=== PATIENT | female | born 1970 | race Caucasian/White ===

== ENCOUNTER → 2017-09-08 15:58 | Outpatient (REF) | payer MEDICARE, MEDICAID, SELFPAY | LOC: LAB 15:58 | PROVIDERS: Family Provider Family Medicine; PCP Family Medicine; Visit Provider Internal Medicine | DX: L08.9 Local infection of the skin and subcutaneous tissue, unspecified (principal) | CPT/HCPCS: 87070; 87075; 87077; 87186; 87205 ==

== ENCOUNTER 2019-11-04 17:10 | Emergency (ER) | payer MEDICARE, MEDICAID, SELFPAY ==
[2019-11-04] VITALS (8 sets, daily range): BP systolic 139–194; BP diastolic 71–94; PULSE 79–112; RESP 14–22; TEMP 37.1; O2SAT 97–99
--- NOTE | 2019-11-04 17:19 | DI.RAD.S_ITS ---
PROCEDURE: XR CHEST 1V INDICATIONS: chest pain TECHNIQUE: One view of the chest was acquired. COMPARISON: None. FINDINGS: Surgical changes and devices: None. Lungs and pleura: Lungs are clear. No pleural effusions or pneumothorax. Mediastinum: Mediastinal contours appear normal. Heart size is normal. Bones and chest wall: No suspicious bony lesions. Overlying soft tissues appear unremarkable. IMPRESSION: No acute cardiopulmonary abnormalities. Dictated by: Howard Tripp M.D. on 11/04/2019 at 18:16 Approved by: Howard Tripp M.D. on 11/04/2019 at 18:16
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
[2019-11-04 17:38] LABS: Add Manual Diff / Slide Review NO; Basophils Absolute Auto 100 /uL (0-100); Basophils Percent Auto 1.2 % (0-2); Eosinophils Absolute Auto 200 /uL (0-450); Eosinophils Percent Auto 1.8 % (2-4); Hematocrit 42.9 % (36-46); Hemoglobin 14.9 g/dL (12.0-16.0); Lymphocytes Absolute Auto 2600 /uL (1100-4500); Lymphocytes Percent Auto 28.6 % (25-40); Mean Corpuscular HGB Conc 34.6 % (30-36); Mean Corpuscular Hemoglobin 31.8 PG (26-34); Mean Corpuscular Volume 91.9 fL (80-100); Monocytes Absolute Auto 500 /uL (0-900); Neutrophils Absolute Auto 5700 /uL (1500-7000); Neutrophils Percent Auto 63.4 % (50-75); Platelet Count 237 X10^3/uL (150-400); Red Blood Cell Count 4.67 X10^6/uL (4.0-5.2); Red Cell Distribution Width 13.1 % (11.6-14.8)
[2019-11-04 17:40] LABS: Prothrombin Time 11.2 SECONDS (10.1-12.7)
[2019-11-04 17:43] LABS: PTT Partial Thromboplastin Tim 34 SECONDS (26.4-36.2)
[2019-11-04 17:50] LABS: Alanine Aminotransferase 22 IU/L (<35); Albumin 4.2 g/dL (3.5-5.0); Albumin Globulin Ratio 1.4 (1.0-2.8); Alkaline Phosphatase 95 U/L (38-126); Aspartate Aminotransferase 44 IU/L (14-36); BUN Creatinine Ratio 32.6 (6-22); Bilirubin Total 0.4 mg/dL (0.2-1.3); Blood Urea Nitrogen 14 mg/dL (7-17); Calcium 9.6 mg/dL (8.4-10.2); Carbon Dioxide 22 mmol/L (22-32); Chloride 104 mmol/L (98-107); Creatine Kinase 106 U/L (30-135); Estimated Glomerular Filt Rate > 60.0 mL/min (>60); Globulin 3.1 g/dL (1.7-4.1); Glucose 193 mg/dL (70-100); HEMOLYSIS 27 (0-50); Lipase 37 U/L (23-300); Potassium 4.1 mmol/L (3.4-5.1); Sodium 138 mmol/L (137-145); Total Protein 7.3 g/dL (6.3-8.2)
[2019-11-04 18:06] LABS: CKMB % Relative Index 5.7 % (1.5-5.0); Creatine Kinase MB 6.05 ng/mL (<2.37)
[2019-11-04] MEDS: HEPARIN 5,000 UNIT/ML VIAL 5000 UNIT IV (18:37)
[2019-11-04] MEDS: ASPIRIN 81 MG CHEW TAB 324 MG PO (18:37)
[2019-11-04] MEDS: HEPARIN DRIP 25,000 UNIT/500 ML IV.SOLN 28.848 UNIT IV (18:39)
[2019-11-04] MEDS: NITROGLYCERIN 0.4 MG SL TAB SL ×3 (18:47→20:59)
[2019-11-04] MEDS: SODIUM CHLORIDE 0.9% 1,000 ML 150 ML IV (18:49)
[2019-11-04 18:50] LABS: NT-proBNP (BNP-Adult 18+) 98 pg/mL (<125)
--- NOTE | 2019-11-04 18:58 | PC.NURSE ---
Larisa AWAN witnessed heparin drip and heparin bolus
[2019-11-04] MEDS: ATORVASTATIN 20 MG TABLET 80 MG PO (19:20)
[2019-11-04] MEDS: METOPROLOL IR 50 MG TABLET PO (19:20)
--- NOTE | 2019-11-04 19:33 | PC.NURSE ---
Assumed care of pt. report received from LV Pavon. Pt resting in bed. Heparin gtt infusing at 12units/kg/hr, NS @ 150ml/hr. Pt denies pain at this time states No pain im just tired and i have a headache. Metoprolol and Lipitor given as ordered. repeat EKG obtained. 2nd trop drawn and sent. NAD. remains on cardiac monitoring. awaiting transport to OSH.
--- NOTE | 2019-11-04 21:30 | PC.NURSE ---
attempted report to [facility] at this time. RN unavailable.
[2019-11-04 21:44] LABS: COVID19 -Nasal RAPID Negative (Negative)
== END 2019-11-04 21:30 | disposition short-term general hospital (02) ==
PROVIDERS: Emergency Medicine; Emergency Provider Student in an Organized Health Care Education/Training Program; Family Provider Family Medicine; PCP Family Medicine
DX: I21.4 Non-ST elevation (NSTEMI) myocardial infarction (principal); E66.01 Morbid (severe) obesity due to excess calories; E11.9 Type 2 diabetes mellitus without complications; R00.0 Tachycardia, unspecified; F41.9 Anxiety disorder, unspecified; E34.0 Carcinoid syndrome
CPT/HCPCS: 36415; 71045; 80053; 82550; 82553; 83690; 83880; 84484; 85025; 85610; 85730; 87635; 93005; 96365; 96366; 96375; 99285; J1644

== ENCOUNTER → 2020-03-07 16:54 | Outpatient (CLI) | payer MEDICARE, MEDICAID, SELFPAY ==
--- NOTE | 2020-03-07 16:58 | DI.MRI.S_ITS ---
PROCEDURE: MR KNEE LT WO CON INDICATIONS: PAIN IN LEFT KNEE TECHNIQUE: Noncontrast sagittal PD fast spin echo and T2 fast spin echo with fat saturation, sagittal 3-D FLASH with fat saturation; coronal T1 spin echo and PD fast spin echo with fat saturation, and axial PD fast spin echo with fat saturation through the knee. COMPARISON: None. FINDINGS: Image quality: Excellent. Menisci: Medial meniscus intact. Lateral meniscus intact. There is prominent adjacent fluid seen within the meniscosynovial recess Cruciate ligaments: Anterior cruciate ligament appears intact. Posterior cruciate ligament appears intact. Medial structures: The medial collateral ligament appears intact. Semimembranosus tendon appears intact. Visualized portions of the pes anserinus tendons appear normal. No abnormal bursal fluid. Lateral structures: The lateral collateral ligament intact. Biceps femoris tendon appears intact. Popliteus tendon grossly unremarkable. Iliotibial band appears intact. Anterior structures: Quadriceps tendon intact. Medial and lateral patellofemoral ligaments intact. There is mild patellar tendinopathy. Prepatellar and superficial infrapatellar subcutaneous edema/fluid. There is minimal deep infrapatellar fluid Bones and cartilage: No focal marrow contusion or discrete low signal fracture line. Within the medial compartment, mild diffuse surface fraying of the femoral and tibial patellar cartilage. Within the lateral compartment, no focal cartilage defect Within the patellofemoral compartment, partial-thickness loss and surface fraying of the cartilage overlying the lateral patellar facet. Joint space: Trace joint effusion No definite formed Hansen's cyst although there is trace fluid between the semimembranosus and medial gastrocnemius tendons. No specific evidence of intra-articular loose body. IMPRESSION: Mild patellar tendinopathy. Mild degenerative joint disease, in particular involving the patellofemoral compartment. Elsewhere, no internal derangement Trace joint effusion. Dictated by: Yasmani Ruby M.D. on 03/10/2020 at 8:29 Approved by: Yasmani Ruby M.D. on 03/10/2020 at 8:35
--- NOTE | 2020-03-07 16:59 | DI.RAD.S_ITS ---
PROCEDURE: XR SACRUM COCCYX MIN 2V INDICATIONS: PAIN IN COCCYX TECHNIQUE: 3 views of the sacrum and coccyx acquired. COMPARISON: Outside Facility, , CT ABDOMEN/PELVIS WITHOUT CONTRAST, 10/15/2015, 13:19. Located Within [facility], CT, ABDOMEN/PELVIS WITH CONTRAST, 12/21/2014, 20:11. FINDINGS: This study is limited by body habitus. Bones: No fractures or dislocations. No suspicious bony lesions. Soft tissues: Visualized bowel gas pattern is normal. No suspicious soft tissue densities. Pelvic phleboliths are incidentally noted. IMPRESSION: No significant plain film abnormality of the sacrum or coccyx can be seen. Dictated by: Lee Lerma M.D. on 03/08/2020 at 9:29 Approved by: Lee Lerma M.D. on 03/08/2020 at 9:31
== END ==
PROVIDERS: Family Provider Family Medicine; PCP Family Medicine; Referring Provider Family Medicine; Visit Provider Family Medicine
DX: M25.562 Pain in left knee (principal); M17.12 Unilateral primary osteoarthritis, left knee; M53.3 Sacrococcygeal disorders, not elsewhere classified
CPT/HCPCS: 72220; 73721

== ENCOUNTER → 2020-10-10 12:39 | Outpatient (CLI) | payer MEDICARE, MEDICAID, SELFPAY ==
--- NOTE | 2020-10-10 | DI.CT.S_ITS ---
PROCEDURE: CT CHEST WO CON INDICATIONS: Other nonspecific abnormal finding of lung field TECHNIQUE: Noncontrast 5 mm thick sections acquired from the pulmonary apices to the posterior costophrenic angles. 1 mm lung window, 5 mm thick coronal and sagittal and 7 mm axial MIP reformats were then acquired. For radiation dose reduction, the following was used: automated exposure control, adjustment of mA and/or kV according to patient size. COMPARISON: [facility], CT, ABDOMEN/PELVIS WITH CONTRAST, 12/21/2014, 20:11. [facility], CR, XR CHEST 1 VIEW, 01/22/2020, 16:13. Outside Film, CT, CT ABDOMEN PELVIS WITH CONTRAST, 07/05/2020, 19:15. FINDINGS: Image quality: Excellent. Lungs and pleura: Ill-defined 3 mm pulmonary nodule, posterior segment right upper lobe, image 118/3. 5 mm pleural based pulmonary nodule, left lower lobe, image 200/3. This is not significantly changed from a prior CT abdomen and pelvis dated 12/21/2014 No acute air space opacities. No pleural effusions or pneumothorax. Central and peripheral airways are patent and normal in caliber. Mediastinum: Heart size is normal. No pericardial effusion. Coronary artery calcifications. Question LAD stent. No mediastinal adenopathy by size criteria. Thoracic aorta and central pulmonary arteries are normal in size. Esophagus is normal in caliber. No hiatal hernia. Bones and chest wall: No suspicious bony lesions. No vertebral body compression fractures. No axillary or supraclavicular adenopathy by size criteria. Thyroid gland is unremarkable . Abdomen: Diffuse hepatic steatosis. Visualized upper abdominal solid organs and bowel loops otherwise appear normal in the absence of contrast. IMPRESSION: 1. There is an ill-defined 3 mm pulmonary nodule in the right upper lobe, not previously imaged. There is a 5 mm pleural based pulmonary nodule in the left lower lobe, unchanged appear to 2015, a benign pulmonary nodule. 2. Diffuse hepatic steatosis. 3. Coronary artery disease. Dictated by: Horace Villareal M.D. on 10/10/2020 at 13:08 Approved by: Horace Villareal M.D. on 10/10/2020 at 13:29
== END ==
PROVIDERS: Family Provider Family Medicine; PCP Family Medicine; Referring Provider Family Medicine; Visit Provider Family Medicine
DX: R91.8 Other nonspecific abnormal finding of lung field (principal); K76.0 Fatty (change of) liver, not elsewhere classified; I25.10 Atherosclerotic heart disease of native coronary artery without angina pectoris
CPT/HCPCS: 71250

== ENCOUNTER 2021-11-02 13:42 | Emergency (ER) | payer MEDICARE, MEDICAID, SELFPAY ==
[2021-11-02 13:49] VITALS: BP 181/89; PULSE 97; RESP 16; TEMP 36.6; O2SAT 94; BMI 41.5
--- NOTE | 2021-11-02 13:56 | DI.RAD.S_ITS ---
PROCEDURE: XR KNEE RT 3V INDICATIONS: fall, pain/swelling TECHNIQUE: 3 views of the knee were acquired. COMPARISON: None. FINDINGS: Bones: No fractures or dislocations. No suspicious bony lesions. Soft tissues: Minimal joint effusion. No suspicious soft tissue calcifications. IMPRESSION: Minimal effusion. No visualized acute fracture or dislocation. However, if clinical concern and/or pain persist, short interval imaging followup in 7-10 days is recommended, as occult injury cannot be definitively excluded. Dictated by: Ban Puckett M.D. on 11/02/2021 at 14:43 Approved by: Ban Puckett M.D. on 11/02/2021 at 14:54
--- NOTE | 2021-11-02 13:56 | DI.RAD.S_ITS ---
PROCEDURE: XR WRIST LT MIN 3V INDICATIONS: fall, pain/swelling TECHNIQUE: 4 views of the wrist were acquired. COMPARISON: None. FINDINGS: Bones: No fractures or dislocations. No suspicious bony lesions. Scaphoid view: No visualized fracture. Soft tissues: No suspicious soft tissue calcifications. IMPRESSION: No visualized acute fracture or dislocation. However, if clinical concern and/or pain persist, short interval imaging followup in 7-10 days is recommended, as occult injury cannot be definitively excluded. Dictated by: Ban Puckett M.D. on 11/02/2021 at 14:54 Approved by: Ban Puckett M.D. on 11/02/2021 at 14:55
[2021-11-02 14:36] VITALS: PULSE 92; O2SAT 98
--- NOTE | 2021-11-02 14:40 | ED_ITS ---
HPI - Extremity Problem <Juju Ludwin Davis, [facility] - Last Filed: 11/02/21 15:27> General Chief complaint: Syncope Stated complaint: Blacked out and fell on Sat- left side body pain Time Seen by Provider: 11/02/21 14:24 Mode of arrival: Wheelchair History of Present Illness HPI Narrative: This is a 51-year-old female with history of diabetes-insulin dependent, reports history of colon cancer and states she gets octreotide injections and endorses blood in stool at baseline, patient endorses having history of [place] two years ago, has been on metoprolol since and states that she has lightheadedness and dizziness when she stands up on this medication ever since she started it. She states that three days ago she stood up abruptly and felt dizzy, fell down injuring her left knee and her left forearm. States she has been taking Tylenol and ibuprofen for this, endorses blood in her stool but not much, endorses seeing a new oncologist tomorrow for her reported colon cancer. She denies any radiation, chemotherapy, during surgery to her abdomen, or any medications other than octreotide, and her diabetes medications. Patient denies any new dizziness, lightheadedness, head injury, vision changes, states that her blood sugars have been up and down but she denies any recent fever, illness, sore throat, cough, shortness of breath, or changes to her health. Patient states that she took three Tylenol prior to her arrival today, states that she takes ibuprofen when she has pain, when questioned about this and her GI bleeding, patient states that she has never been told to not take it. She is not on a PPI. Related Data Home Medications Medication Instructions Recorded Confirmed gabapentin 600 mg tablet 900 mg PO TID 11/28/17 11/28/17 humalog u 200 IM .before meals 11/28/17 11/28/17 hydrocodone 5 mg-acetaminophen 325 1 tab PO Q6H PRN 11/28/17 11/28/17 mg tablet loperamide 2 mg capsule 2 mg PO .prn 11/28/17 11/28/17 ondansetron HCl 4 mg tablet 4 mg PO DAILY PRN 11/28/17 11/28/17 (Zofran) sertraline 100 mg tablet (Zoloft) 350 mg PO DAILY 11/28/17 11/28/17 zolpidem 10 mg tablet (Ambien) 10 mg PO BEDTIME PRN 11/28/17 11/28/17 Previous Rx's Medication Instructions Recorded diclofenac sodium 1 % topical gel 2 g topical QID PRN pain #100 grams 11/02/21 omeprazole 20 mg tablet,delayed 20 mg PO DAILY PRN GI bleeding 11/02/21 release prophylaxis #20 tabs Allergies Allergy/AdvReac Type Severity Reaction Status Date / Time Sulfa (Sulfonamide Allergy Severe RASH, Unverified 11/02/21 13:55 Antibiotics) FEELS LIKE MY THROAT IS CLOSING UP exenatide Allergy Intermediate SYCOPE, Unverified 11/02/21 13:55 EMESIS hydromorphone Allergy Intermediate FEELING OF Unverified 11/02/21 13:55 IMPENDING DOOM latex Allergy Intermediate RASH, Unverified 11/02/21 13:55 YEAST INFECTIONS levofloxacin Allergy Intermediate RASH Unverified 11/02/21 13:55 metformin Allergy Intermediate VOMITING Unverified 11/02/21 13:55 DIARRHEA morphine Allergy Verified 11/02/21 13:55 Penicillins Allergy Verified 11/02/21 13:55 TAPE PAPER TAPE OK Allergy Unknown Uncoded 11/02/21 13:55 Review of Systems <BRAULIO Sethi - Last Filed: 11/02/21 15:27> Review of Systems Narrative: General: denies fever, chills, malaise, sweats, fatigue Head/Neck: denies headache, neck pain, dizziness Eyes: denies visual changes, eye pain Cardio: denies chest pain, palpitations, edema Respiratory: denies dyspnea, cough, orthopnea GI: denies abdominal pain, nausea, vomiting, or diarrhea : denies dysuria, hematuria, urinary retention, frequency or incontinence MSK: endorses left knee pain, with an abrasion and a bruise, denies any muscle weakness or sensation changes, endorses left forearm pain Skin: denies rash, itching, has an abrasion to her left knee and is scabbed over Neuro: denies numbness, tingling Patient History <BRAULIO Sethi - Last Filed: 11/02/21 15:27> Medical History (Updated 11/02/21 @ 15:21 by BRAULIO Sethi) Anxiety Carcinoid syndrome Diabetes Migraines Sleep apnea Surgical History H/O bladder repair surgery H/O hernia repair H/O: hysterectomy History of tonsillectomy Family History Mother Hypertension Diabetes mellitus Stroke Father Hypertension Diabetes mellitus Grandmother Hypertension Heart disease Gallstones Diabetes mellitus Grandfather Hypertension Heart disease Diabetes mellitus Family/Other Heart disease Social History marital status: unmarried,living together household members: significant other occupational status: unemployed Smoking Status: Never smoker alcohol intake: never substance use type: does not use Smoking Status: Never smoker alcohol intake frequency: holidays/special occasions only Substance Use Type: does not use Exam <BRAULIO Sethi - Last Filed: 11/02/21 15:27> Narrative Exam Narrative: Independently reviewed vitals signs and nursing notes. General: Awake, alert, nontoxic, no cardiorespiratory distress Head/Neck: Atraumatic, neck supple Eyes: EOMI, conjunctiva normal Nose: nares patent, no rhinorrhea Mouth/Throat: moist mucus membranes Cardio: Regular rate and rhythm, no peripheral/dependant edema, warm extremities Respiratory: respirations unlabored without wheezing, stridor, or rales. No re tractions, hypoxia or tachypnea GI: Abdomen soft, obese, nontender, no guarding or rebound tenderness MSK: Moves all extremities, neurovascularly intact, range of motion without deficit Skin: Normal capillary refill, no rash, abrasion on left knee which is scabbed over, mild ecchymosis without suprapatellar edema, no range of motion deficit, tenderness over LCL, no tenderness over MCL, range of motion is intact without deficit, bearing weight is painful for patient, ambulate steadily with a walker without deficit Neuro: Normal speech and cognition, normal gait Initial Vital Signs Initial Vital Signs: Vital Signs Temperature 97.8 F 11/02/21 13:49 Pulse Rate 97 H 11/02/21 13:49 Respiratory Rate 16 11/02/21 13:49 Blood Pressure 181/89 H 11/02/21 13:49 Pulse Oximetry 94 11/02/21 13:49 Oxygen Delivery Method 11/02/21 13:49 <Melany Mcnulty DO - Last Filed: 11/03/21 07:28> Initial Vital Signs Initial Vital Signs: Vital Signs Temperature 97.8 F 11/02/21 13:49 Pulse Rate 97 H 11/02/21 13:49 Respiratory Rate 16 11/02/21 13:49 Blood Pressure 181/89 H 11/02/21 13:49 Pulse Oximetry 94 11/02/21 13:49 Oxygen Delivery Method 11/02/21 13:49 Course <BRAULIO Sethi - Last Filed: 11/02/21 15:27> Orders Ordered: Discontinued Medications Hydrocodone Bitart/Acetaminophen (Hydrocodone/Acet 5/325 Tablet) 1 tab PO NOW ONE Stop: 11/02/21 14:38 Last Admin: 11/02/21 14:59 Dose: 1 tab Documented By: BRANDON Mcitracin (Bacitracin Oint 0.9 Gm Pckt) 1 applic TOP NOW ONE Stop: 11/02/21 15:12 Last Admin: 11/02/21 15:54 Dose: 1 applic Documented By: BRANDON Pantoprazole Sodium (Pantoprazole Dr 20 Mg Tablet) 20 mg PO NOW ONE Stop: 11/02/21 14:38 Last Admin: 11/02/21 15:01 Dose: Not Given Documented By: BRANDON Vital Signs Vital signs: Vital Signs - 8 hr 11/02/21 13:49 Temperature 97.8 F Pulse Rate 97 H Respiratory Rate 16 Blood Pressure 181/89 H Pulse Oximetry 94 Oxygen Delivery Method Room Air <Melany Mcnulty DO - Last Filed: 11/03/21 07:28> Orders Ordered: Discontinued Medications Hydrocodone Bitart/Acetaminophen (Hydrocodone/Acet 5/325 Tablet) 1 tab PO NOW ONE Stop: 11/02/21 14:38 Last Admin: 11/02/21 14:59 Dose: 1 tab Documented By: BRANDON Bacitracin (Bacitracin Oint 0.9 Gm Pckt) 1 applic TOP NOW ONE Stop: 11/02/21 15:12 Last Admin: 11/02/21 15:54 Dose: 1 applic Documented By: BRANDON Pantoprazole Sodium (Pantoprazole Dr 20 Mg Tablet) 20 mg PO NOW ONE Stop: 11/02/21 14:38 Last Admin: 11/02/21 15:01 Dose: Not Given Documented By: BRANDON Vital Signs Vital signs: Vital Signs - 8 hr 11/02/21 13:49 Temperature 97.8 F Pulse Rate 97 H Respiratory Rate 16 Blood Pressure 181/89 H Pulse Oximetry 94 Oxygen Delivery Method Room Air MDM - Extremity (Nontraumatic) <Juju Mascorro Ayanjossie, [facility] - Last Filed: 11/02/21 15:27> Imaging Data Extremity x-ray #1: Radiologist's Impression: PROCEDURE:? XR KNEE RT 3V ? INDICATIONS:? fall, pain/swelling ? TECHNIQUE:? 3 views of the knee were acquired.? ? COMPARISON:? None. ? FINDINGS:? ? Bones:? No fractures or dislocations.? No suspicious bony lesions.? ? Soft tissues:? Minimal joint effusion.? No suspicious soft tissue calcifications.? ? ? IMPRESSION:? Minimal effusion.? No visualized acute fracture or dislocation. However, if clinical concern and/or pain persist, short interval imaging followup in 7-10 days is recommended, as occult injury cannot be definitively excluded. ? ? Dictated by: Ban Puckett M.D. on 11/02/2021 at 14:43 ? ? Approved by: Ban Puckett M.D. on 11/02/2021 at 14:54 ? Extremity x-ray #2: Radiologist's Impression: PROCEDURE:? XR WRIST LT MIN 3V ? INDICATIONS: fall, pain/swelling ? TECHNIQUE:? 4 views of the wrist were acquired.? ? COMPARISON:? None. ? FINDINGS:? ? Bones:? No fractures or dislocations.? No suspicious bony lesions.? ? Scaphoid view:? No visualized fracture. ? Soft tissues:? No suspicious soft tissue calcifications.? ? IMPRESSION:? No visualized acute fracture or dislocation. However, if clinical concern and/or pain persist, short interval imaging followup in 7-10 days is recommended, as occult injury cannot be definitively excluded. ? ? Dictated by: Ban Puckett M.D. on 11/02/2021 at 14:54 ? ? Approved by: Ban Puckett M.D. on 11/02/2021 at 14:55 ? MDM Narrative Medical decision making narrative: This is a 51-year-old female with history reported colon cancer with injections of octreotide as treatment, hypertension, [place] two years ago, diabetes type 2- insulin dependent, who presents to the emergency department after a reported postural dizziness fall three days ago complaining of left knee pain and left wrist pain. Patient states that she has been on metoprolol since or heart attack two years ago and it causes her dizziness when she stands up every time. Patient states that this happened again while she was outside three days ago she remembers being dizzy and then she remembers getting up off the ground. She had an LOC for less than 30 seconds, this was witnessed by her significant other. Patient states that this is not abnormal in this has happened in the past, denies any changes to her health recently, denies any dizziness or lightheadedness prior to this incident. She is not on any anticoagulants, denies any dysuria, urinary frequency, mental status changes, dizziness, high or low blood sugars, increased fatigue, nausea vomiting, endorses blood in stool but this is normal for her at baseline. States that she is seeing a new oncologist tomorrow, reports that she has a history of colon cancer but also tells me that she is taking ibuprofen for her pain. She told me that she still has blood in her stool and everybody knows about it and this is been fully worked up in her records are not here at this hospital. She denies any anemia, she denies any increased fatigue, denies any chest pain, shortness of breath, dizziness or other symptom at this time. Left knee x-ray does show a mild effusion without any acute fracture, dislocation, or other osseous abnormality, left wrist x-ray is negative for any acute fracture, dislocation or any other acute injury. Patient has a mild abrasion to her left knee over her patella, mild tenderness over LCL, ecchymosis present without erythema, rash, obvious suprapatellar joint effusion or other. She is ambulatory with a steady gait although she is in pain using a walker. She was given a walker today for ambul ating safety, discussed a knee immobilizer but patient states that that might be more unsafe as she has difficulty getting around without restrictions. She denies any new numbness or tingling to her extremities was provided a referral to [facility] for follow-up if she has ongoing symptoms. Her left knee was wrapped in a thick Juarez bandage by nursing, she states that this is supportive and was helpful for her to use to ambulate. Patient understands to follow-up with her specialist as scheduled and to return to the emergency department for any new or worsening symptoms, and to follow-up with orthopedics for any worsening of this. She is encouraged to rest, ice, elevate and use her medications as needed for her pain. She states that she has hydrocodone at home to use for this. Patient sees Dr. Perez for cardiology and wishes to follow- up with him regarding her metoprolol dosing as she states she would like to come off of this medicine. She was hypertensive in the emergency department today without any bradycardia, postural dizziness, or other symptoms. Patient is appropriate and amenable to discharge home. Vital signs are stable on repeat examination is unremarkable. Patient has been informed of results. Patient has been given strict return to ER precautions for any new or worsening symptoms. Patient understands to follow up closely with outpatient providers as instructed. Patient understands plan and agrees to discharge home. All questions and concerns answered at this time. Discharge Plan Departure Patient Disposition: Home Clinical Impression: Effusion of left knee Fall Qualifiers: Encounter type: initial encounter Qualified Code(s): W19.XXXA - Unspecified fall, initial encounter Injury of knee, left Qualifiers: Encounter type: initial encounter Qualified Code(s): S89.92XA - Unspecified injury of left lower leg, initial encounter Injury of wrist, left Qualifiers: Encounter type: initial encounter Qualified Code(s): S69.92XA - Unspecified injury of left wrist, hand and finger(s), initial encounter Instructions: DI for Knee Effusion, DI for Wrist Pain Activity Restrictions/Additional Instructions: *You have been diagnosed with left knee injury with swelling inside the joint, contusions, and a left wrist injury without any fracture or abnormalities on the x-ray. Your left knee x-ray does not show any fractures either but it does show some swelling within the joint which is common after a blunt injury like you had. Please continue to ice your injuries as long as it is helpful for the pain, rest, elevate things that are bruised and injured and continue to stay active with light walking with an Juarez wrap for support of your left knee and using the walker. Please follow-up with [facility] if your knee pain is ongoing or difficult to walk with beyond 1-2 weeks. Try not to overuse it but try not to stay in a still position all day, joints like movement so try to walk around frequently, stay hydrated, take pain medicine as needed, you may take hydrocodone in addition to your gabapentin at home. Please return to the emergency department if you have any new or worsening symptoms. Good luck with your oncology doctor tomorrow, please see your primary care provider for referral to physical therapy if you are still feeling stiff and sore after 1-2 weeks. I wish you the best, please avoid ibuprofen and other NSAIDs if your have any blood in your stool. I have prescribed for you omeprazole which will hopefully prevent bleeding from your stomach or duodenum from any GI ulcer. *What to do: *Please continue to take your regular medications as directed. [x ] New medication prescriptions sent to your pharmacy: [ [facility]] [ ] New medication written as a paper prescription [ ] No new medications given *Please follow up with your primary care provider in 2-3 days, call for an appointment. Let them know you were seen in the Emergency Department and that we asked that you be seen for follow-up. We will electronically transmit a record of today's note if your PCP is in our system *If you do not have a primary care provider please contact [phone] to establish care with one of the [facility] primary care providers. *Return to Emergency Department if you should have any new, worsening or concerning symptoms, such as [fever greater than 101F, chills, worsening pain, persistent vomiting or other bothersome symptoms] Prescriptions: New diclofenac sodium 1 % gel 2 g topical QID PRN (Reason: pain) Qty: 100 0RF Rx Instructions: apply to single elbow, wrist or hand, or up to 4g on lower extremities up to 4 times daily as needed for pain omeprazole 20 mg tablet,delayed release (DR/EC) 20 mg PO DAILY PRN (Reason: GI bleeding prophylaxis) Qty: 20 0RF No Action gabapentin 600 mg tablet 900 mg PO TID loperamide 2 mg capsule 2 mg PO .prn hydrocodone-acetaminophen 5-325 mg tablet 1 tab PO Q6H PRN ondansetron HCl [Zofran] 4 mg tablet 4 mg PO DAILY PRN sertraline [Zoloft] 100 mg tablet 350 mg PO DAILY zolpidem [Ambien] 10 mg tablet 10 mg PO BEDTIME PRN humalog u 200 IM .before meals Referrals: [facility] [Provider Group] Samantha Peralta DO [Primary Care Provider] - Visit Report Forms: Patient Portal/API <Melany Mcnulty DO - Last Filed: 11/03/21 07:28> Cosign ED Attending [place] Attestation: I was immediately available in the department for consultation. Documentation has been reviewed. I agree with assessment and plan.
[2021-11-02] MEDS: HYDROCODONE/ACET 5/325 TABLET 1 TAB PO (14:59)
[2021-11-02 15:00] VITALS: PULSE 89; O2SAT 97
[2021-11-02] MEDS: BACITRACIN OINT 0.9 GM PCKT 1 APPLIC TOP (15:54)
--- NOTE | 2021-11-02 15:58 | PC.NURSE ---
Patient was able to ambulate from her bed to the door and back with a fww and the jacqueline wrap on her L knee.
== END 2021-11-02 16:11 | disposition home or self-care (01) ==
PROVIDERS: Emergency Provider Nurse Practitioner Critical Care Medicine; Family Provider Family Medicine; PCP Family Medicine
DX: M25.462 Effusion, left knee (principal); S59.912A Unspecified injury of left forearm, initial encounter; S89.92XA Unspecified injury of left lower leg, initial encounter; S69.92XA Unspecified injury of left wrist, hand and finger(s), initial encounter; W19.XXXA Unspecified fall, initial encounter; I25.2 Old myocardial infarction
CPT/HCPCS: 73110; 73562; 99283

== ENCOUNTER → 2022-03-05 14:26 | Outpatient (CLI) | payer MEDICARE, MEDICAID, SELFPAY ==
--- NOTE | 2022-03-05 | DI.ECHO.S_ITS ---
[facility]---------+ [facility] +---------+ : : [address] [address] : : : : [id number] : : : : Phone: [phone]+ Echocardiogram Report + + :Name: CADENCE PADILLA Study Date: 03/05/2022 Height: 65 in : :[facility] ReadingLocation: Weight: 270 lb : : Gender: Female BSA: 2.2 m2 : :: 1970 Age: 51 yrs BP: 182/98 mmHg: :Reason For Study: Hypertension : :Ordering Physician: KOBY, : :CARLTON Performed By: Grupo Mary : :Referring: CARLTON WHALEN : + + Interpretation Summary The left ventricle is normal in size. There is mild concentric left ventricular hypertrophy.The ejection fraction is estimated to be 65-70%. The right ventricle is normal in size and function. All the valves were not well visualized however no significant pathology seen. Mild atherosclerotic plaque(s) in the aortic arch. Procedure: A two-dimensional transthoracic echocardiogram with color flow and Doppler was performed. The study quality was technically difficult. Comparison is made with the echocardiogram of 11/05/2019. The patient was in normal sinus rhythm during the exam. Left Ventricle: The left ventricle is normal in size. There is mild concentric left ventricular hypertrophy. There is no thrombus. Left ventricular systolic function is normal. The ejection fraction is estimated to be 65-70%. There are no focal wall motion abnormalities. Diastolic parameters suggest a relaxation abnormality of the left ventricle, consistent with probable normal filling pressures. Right Ventricle: The right ventricle is normal in size and function. Atria: Both atria are normal in size. The interatrial septum grossly appears intact with no obvious evidence for an atrial septal defect. Mitral Valve: The mitral valve is normal in structure and function. There is no mitral regurgitation noted. Aortic Valve: The aortic valve is not well visualized. There is no aortic valve stenosis. No aortic regurgitation is present. Tricuspid Valve: The tricuspid valve is not well visualized, but is grossly normal. No tricuspid regurgitation. Pulmonary artery pressures cannot be estimated because of the lack of a measurable TR jet velocity. Pulmonic Valve: The pulmonic valve is not well visualized. There is no pulmonic valvular regurgitation. Great Vessels: The aortic root is normal size. The dimensions of the ascending aorta are normal. Mild atherosclerotic plaque(s) in the aortic arch. The inferior vena cava was not visualized. Pericardium/ Pleura There is no pericardial effusion. There is an anterior echo-free space consistent with a fat pad. There is no pleural effusion. MMode/2D Measurements & Calculations LVIDd: 4.5 cm LVOT diam: 1.9 cm LVIDs: 3.1 cm Ao root diam: 2.8 cm FS: 30.6 % asc Aorta Diam: 2.9 cm IVSd: 1.1 cm LVPWd: 1.1 cm LV castanon. diameter/BSA (cm/m^2): 2.0 LV sys. diameter/BSA (cm/m^2): 1.4 LA A2 area: 16.6 cm2 RA long axis: 4.2 cm LA A4 area: 17.8 cm2 RA area: 9.7 cm2 LA length (vol): 5.5 cm RA vol: 19.0 ml LA vol: 45.7 ml RA : 8.4 ml/m2 LA vol index: 20.3 ml/m2 TAPSE: 2.3 cm Doppler Measurements & Calculations Ao V2 max: 200.6 cm/sec LVOT Max Chucky: 112.3 cm/sec Ao V2 mean: 136.4 cm/sec LV V1 max P.0 mmHg Ao max P.1 mmHg LV V1 VTI: 20.8 cm Ao mean P.4 mmHg MARY(I,D): 1.9 cm2 Ao V2 VTI: 33.0 cm MARY(V,D): 1.7 cm2 sev ratio: 0.63 MARY indexed to BSA (cm^2/m^2): 0.83 MV E max chucky: 83.0 cm/sec SV(LVOT): 61.6 ml MV A max chucky: 96.3 cm/sec MV E/A: 0.86 Med Peak E' Chucky: 7.0 cm/sec E/E' med: 11.8 Lat Peak E' Chucky: 8.9 cm/sec E/E' lat: 9.3 E/e' average: 10.6 MV dec time: 0.26 sec Reading Physician:04:19 PM
== END ==
PROVIDERS: Family Provider Family Medicine; PCP Family Medicine; Referring Provider Internal Medicine Cardiovascular Disease; Visit Provider Internal Medicine Cardiovascular Disease
DX: I25.10 Atherosclerotic heart disease of native coronary artery without angina pectoris (principal); R00.0 Tachycardia, unspecified; I70.0 Atherosclerosis of aorta; I10 Essential (primary) hypertension
CPT/HCPCS: 93306

== ENCOUNTER 2022-12-01 14:17 | Emergency (ER) | payer MEDICARE, MEDICAID, SELFPAY ==
[2022-12-01 14:37] VITALS: BP 154/76; PULSE 75; RESP 18; TEMP 36.4; O2SAT 98; BMI 45.7
--- NOTE | 2022-12-01 14:40 | DI.RAD.S_ITS ---
PROCEDURE: XR FOOT RT MIN 3V INDICATIONS: injury/pain TECHNIQUE: 3 views of the foot were acquired. COMPARISON: None. FINDINGS: Bones: No fractures or dislocations. No suspicious bony lesions. Mild osteoarthritic changes. Calcaneal spurring. Soft tissues: No tibiotalar joint effusion. Achilles tendon appears normal. IMPRESSION: No acute osseous abnormality. If clinical symptoms persist or clinical suspicion for pathology is high, a repeat examination in 7-10 days, or advanced imaging such as CT or MRI is suggested for further evaluation. Dictated by: Jose Yung M.D. on 12/01/2022 at 16:27 Approved by: Jose Yung M.D. on 12/01/2022 at 16:28
[2022-12-01] MEDS: IBUPROFEN 400 MG TABLET 800 MG PO (16:56)
--- NOTE | 2022-12-01 16:56 | ED.LOWEXIN ---
HPI - Extremity Injury (Lower) <Juju Davis TELEVISION AUDIO ENGINEER - Last Filed: 12/01/22 17:04> General Chief Complaint: Extremity Injury, Lower Stated Complaint: thinks broke rt foot Time Seen by Provider: 12/01/22 16:41 Source: patient Mode of arrival: Wheelchair History of Present Illness HPI Narrative: this is a 52-year-old female presents to the emergency department with a right foot injury. She states that she was getting up to go to the bathroom this morning and struck her foot on a sq wooden piece of furniture and complains of pain to the forefoot both on the dorsum and plantar aspect of her right foot. She states that her pain was so severe she was not able to tolerated at home. She was waiting in the waiting room for approximately 2-1/2 hours and states that she almost left but was brought back to a room just in time. She denies numbness or tingling, complains of pain, states it is worse when she bears weight, she heard a crack when she struck the furniture and felt sure it was broken. Related Data Home Medications Medication Instructions Recorded Confirmed gabapentin 600 mg tablet 900 mg PO TID 11/28/17 11/28/17 humalog u 200 IM .before meals 11/28/17 11/28/17 hydrocodone 5 mg-acetaminophen 325 1 tab PO Q6H PRN 11/28/17 11/28/17 mg tablet loperamide 2 mg capsule 2 mg PO .prn 11/28/17 11/28/17 ondansetron HCl 4 mg tablet 4 mg PO DAILY PRN 11/28/17 11/28/17 (Zofran) sertraline 100 mg tablet (Zoloft) 350 mg PO DAILY 11/28/17 11/28/17 zolpidem 10 mg tablet (Ambien) 10 mg PO BEDTIME PRN 11/28/17 11/28/17 Previous Rx's Medication Instructions Recorded diclofenac sodium 1 % topical gel 2 g topical QID PRN pain #100 grams 11/02/21 omeprazole 20 mg tablet,delayed 20 mg PO DAILY PRN GI bleeding 11/02/21 release prophylaxis #20 tabs diclofenac sodium 1 % topical gel 4 g topical QID PRN foot pain #100 12/01/22 grams hydrocodone 5 mg-acetaminophen 325 1 tab PO Q6H PRN pain #10 tabs 12/01/22 mg tablet lidocaine 5 % topical patch 1 patch topical DAILY #30 ea 12/01/22 (Lidoderm) Allergies Allergy/AdvReac Type Severity Reaction Status Date / Time Sulfa (Sulfonamide Allergy Severe RASH, Unverified 11/02/21 13:55 Antibiotics) FEELS LIKE MY THROAT IS CLOSING UP exenatide Allergy Intermediate SYCOPE, Unverified 11/02/21 13:55 EMESIS hydromorphone Allergy Intermediate FEELING OF Unverified 11/02/21 13:55 IMPENDING DOOM latex Allergy Intermediate RASH, Unverified 11/02/21 13:55 YEAST INFECTIONS levofloxacin Allergy Intermediate RASH Unverified 11/02/21 13:55 metformin Allergy Intermediate VOMITING Unverified 11/02/21 13:55 DIARRHEA morphine Allergy Verified 11/02/21 13:55 Penicillins Allergy Verified 11/02/21 13:55 TAPE PAPER TAPE OK Allergy Unknown Uncoded 11/02/21 13:55 Review of Systems <BRAULIO Sethi - Last Filed: 12/01/22 17:04> Review of Systems ROS Unobtainable: All systems reviewed & are unremarkable except as noted in HPI and below Patient History <BRAULIO Setih - Last Filed: 12/01/22 17:04> Medical History Anxiety Carcinoid syndrome Diabetes Migraines Sleep apnea Surgical History H/O bladder repair surgery H/O hernia repair H/O: hysterectomy History of tonsillectomy Family History Mother Hypertension Diabetes mellitus Stroke Father Hypertension Diabetes mellitus Grandmother Hypertension Heart disease Gallstones Diabetes mellitus Grandfather Hypertension Heart disease Diabetes mellitus Family/Other Heart disease Social History marital status: unmarried,living together household members: significant other occupational status: unemployed Smoking Status: Never smoker alcohol intake: never substance use type: does not use Smoking Status: Never smoker alcohol intake frequency: holidays/special occasions only Substance Use Type: does not use Exam <BRAULIO Sethi - Last Filed: 12/01/22 17:04> Narrative Exam Narrative: Reviewed vitals signs and nursing notes. General: Pleasant, sitting upright, in no acute distress, well groomed, afebrile MSK: moves all extremities, no weakness, normal tone, ambulatory without deficit , complains pain to the right foot with bearing weight in his sitting wheelchair. She has brisk cap refill to the right toes, mobility sensation is intact to the whole foot and toes, DP and PT pulses are 2+, no plantar ecchymosis, tenderness over the distal metatarsals of middle toes both on the dorsum and plantar aspect Skin: brisk capillary refill, without rash or wound Neuro: clear speech and normal cognition, A&O x3, GCS 15, no focal motor or sensation deficits Initial Vital Signs Initial Vital Signs: Vital Signs Temperature 97.6 F 12/01/22 14:37 Pulse Rate 75 12/01/22 14:37 Respiratory Rate 18 12/01/22 14:37 Blood Pressure 154/76 H 12/01/22 14:37 Pulse Oximetry 98 12/01/22 14:37 Oxygen Delivery Method Room Air 12/01/22 14:37 <Matt Sky MD - Last Filed: 12/07/22 12:07> Initial Vital Signs Initial Vital Signs: Vital Signs Temperature 97.6 F 12/01/22 14:37 Pulse Rate 75 12/01/22 14:37 Respiratory Rate 18 12/01/22 14:37 Blood Pressure 154/76 H 12/01/22 14:37 Pulse Oximetry 98 12/01/22 14:37 Oxygen Delivery Method Room Air 12/01/22 14:37 Procedures <BRAULIO Sethi - Last Filed: 12/01/22 17:04> Orthopedic Splinting/Casting Injury #1: Side: right Lower Extremity Injury Location: foot Lower Extremity Immobilizer: post-op shoe Post splinting neuro exam: intact Post splinting vascular exam: intact Placed by: Nursing Course <BRAULIO Sethi - Last Filed: 12/01/22 17:04> Orders Ordered: Discontinued Medications Ibuprofen (Ibuprofen 400 Mg Tablet) 800 mg PO NOW ONE Stop: 12/01/22 16:48 Last Admin: 12/01/22 16:56 Dose: 800 mg Documented By: EVELYNE Lidocaine (Lidocaine Patch 1 Each Adh..Patch) 1 each TOP NOW ONE Stop: 12/01/22 16:56 Last Admin: 12/01/22 16:59 Dose: 1 each Documented By: EVELYNE Vital Signs Vital signs: Vital Signs - 8 hr 12/01/22 14:37 Temperature 97.6 F Pulse Rate 75 Respiratory Rate 18 Blood Pressure 154/76 H Pulse Oximetry 98 Oxygen Delivery Method Room Air <Matt Sky MD - Last Filed: 12/07/22 12:07> Orders Ordered: Discontinued Medications Ibuprofen (Ibuprofen 400 Mg Tablet) 800 mg PO NOW ONE Stop: 12/01/22 16:48 Last Admin: 12/01/22 16:56 Dose: 800 mg Documented By: EVELYNE Lidocaine (Lidocaine Patch 1 Each Adh..Patch) 1 each TOP NOW ONE Stop: 12/01/22 16:56 Last Admin: 12/01/22 16:59 Dose: 1 each Documented By: EVELYNE Vital Signs Vital signs: Vital Signs - 8 hr 12/01/22 14:37 Temperature 97.6 F Pulse Rate 75 Respiratory Rate 18 Blood Pressure 154/76 H Pulse Oximetry 98 Oxygen Delivery Method Room Air MDM - Extremity Injury (Lower) <BRAULIO Sethi - Last Filed: 12/01/22 17:04> Imaging Data Extremity x-ray #1: Radiologist's Impression: PROCEDURE:? XR FOOT RT MIN 3V ? INDICATIONS:? injury/pain ? TECHNIQUE:? 3 views of the foot were acquired.? ? COMPARISON:? None. ? FINDINGS:? ? Bones:? No fractures or dislocations.? No suspicious bony lesions.? Mild osteoarthritic changes.? Calcaneal spurring. ? Soft tissues:? No tibiotalar joint effusion.? Achilles tendon appears normal.? ? ? IMPRESSION:? No acute osseous abnormality.? If clinical symptoms persist or clinical suspicion for pathology is high, a repeat examination in 7-10 days, or advanced imaging such as CT or MRI is suggested for further evaluation. ? ? Dictated by: Jose Yung M.D. on 12/01/2022 at 16:27 ? ? Approved by: Jose Yung M.D. on 12/01/2022 at 16:28 ? MDM Narrative Medical decision making narrative: Chief Complaint: Foot pain Multiple etiologies for patient's complaint considered including, but not limited to: contusion, fracture, hematoma, vascular injury, tendon injury I have independently reviewed the patient's vital signs and nursing notes as well as prior records if available. Course of Care: x-ray patient's right foot is negative for acute Fracture, she is neurovascularly intact without deficit, splinted in a orthopedic shoe, recommended to follow-up in 7-10 days for repeat x-ray if still painful and/or follow-up with [facility]. Her pain was treated with a lidocaine patch and ibuprofen, she is encouraged to use ice, elevate it, use hydrocodone which was prescribed as needed and lidocaine patches if helpful. Social considerations that may affect disposition: none Questions are addressed and there is agreement with the plan and for follow-up. I consulted with the ED attending physician Dr. Sky as needed for higher level of care considerations and they were available for discussion and recommendations regarding plan of care and diagnostic testing. Patient is appropriate for outpatient management. Discharge Plan Departure Patient Disposition: Home Clinical Impression: Injury of foot Instructions: DI for Metatarsalgia, DI for Foot Pain Activity Restrictions/Additional Instructions: *You have been diagnosed with a right foot injury without evidence of fracture. If you are unable to weight or this is still just as painful as it is today in a few days, please have your primary care provider repeat the x-ray. I am sorry for your pain, thank you for coming in today, given you some pain pills to use in the meantime, gabapentin can help you at nighttime for sleep, please use something topical in conjunction with Tylenol and ibuprofen and or pain pill. Ice it, it should gradually start getting better. Wear the shoe all of the time to prevent worsening strain to injured areas. Graduate from shoe when you are able to walk on the floor without pain. schedule an appointment in [facility] if you are not improving, they can be your x-ray, wait at least 1 or 5 days before repeat x-ray. *What to do: *Please continue to take your regular medications as directed. [ x] New medication prescriptions sent to your pharmacy: [[facility] ] [ ] New medication written as a paper prescription [ ] No new medications given *Please call and schedule follow up with your primary care provider in 2-3 days, at least for an update. Let them know you were seen in the Emergency Department for the above problem. We will electronically transmit a record of today's note if your PCP or specialist is in our system. *If you do not have a primary care provider please contact [phone] to establish care with one of the [facility] primary care providers. *Return to the Emergency Department for worsening symptoms, inability to keep liquids down, fever greater than 101F, chills, or other concerning symptom. Prescriptions: New diclofenac sodium 1 % gel 4 g topical QID PRN (Reason: foot pain) Qty: 100 2RF Rx Instructions: apply to single elbow, wrist or hand; for hand includes palm/fingers/back of hand hydrocodone-acetaminophen 5-325 mg tablet 1 tab PO Q6H PRN (Reason: pain) Qty: 10 0RF lidocaine [Lidoderm] 5 % adhesive patch,medicated 1 patch topical DAILY Qty: 30 0RF Rx Instructions: leave on most painful area for up to 12 hrs No Action gabapentin 600 mg tablet 900 mg PO TID loperamide 2 mg capsule 2 mg PO .prn hydrocodone-acetaminophen 5-325 mg tablet 1 tab PO Q6H PRN ondansetron HCl [Zofran] 4 mg tablet 4 mg PO DAILY PRN sertraline [Zoloft] 100 mg tablet 350 mg PO DAILY zolpidem [Ambien] 10 mg tablet 10 mg PO BEDTIME PRN humalog u 200 IM .before meals diclofenac sodium 1 % gel 2 g topical QID PRN (Reason: pain) Qty: 100 0RF Rx Instructions: apply to single elbow, wrist or hand, or up to 4g on lower extremities up to 4 times daily as needed for pain omeprazole 20 mg tablet,delayed release (DR/EC) 20 mg PO DAILY PRN (Reason: GI bleeding prophylaxis) Qty: 20 0RF Referrals: [facility] [Provider Group] ( Schedule an appointment if you have no improvement, they can repeat your x-ray, wait at least 5 days before repeat x-ray) Stand Alone Forms: Patient Portal/API, Work Release Note <Matt Sky MD - Last Filed: 12/07/22 12:07> Cosign ED Attending [place] Attestation: I was immediately available in the department for consultation. ?This documentation has been reviewed and I agree with assessment and plan. Supervised by Matt Sky MD
[2022-12-01] MEDS: LIDOCAINE PATCH 1 EACH ADH..PATCH TOP (16:59)
== END 2022-12-01 17:19 | disposition home or self-care (01) ==
PROVIDERS: Emergency Provider Nurse Practitioner Critical Care Medicine; Family Provider Family Medicine; PCP Family Medicine
DX: S99.921A Unspecified injury of right foot, initial encounter (principal); X58.XXXA Exposure to other specified factors, initial encounter
CPT/HCPCS: 73630; 99283; 99284

== ENCOUNTER 2023-02-06 20:19 | Observation (INO) | payer MEDICARE, MEDICAID, SELFPAY ==
[2023-02-06] VITALS (10 sets, daily range): BP systolic 151–197; BP diastolic 81–95; PULSE 89–96; RESP 15–18; TEMP 36.6; O2SAT 91–98; BMI 46.0
--- NOTE | 2023-02-06 20:20 | PC.NURSE ---
pt was eating chicken last night when a piece became lodged in her throat, pt has been unable to dislodge the food bolus at home, pt had an endoscope a few months ago but states she was not told she had any strictures, at this time airway is patent but pt is unable to tolerate swallowing anything
--- NOTE | 2023-02-06 20:41 | DI.RAD.S_ITS ---
PROCEDURE: XR CHEST 1V INDICATIONS: Sternal chest pain. TECHNIQUE: One view of the chest was acquired. COMPARISON: [facility], CR, XR CHEST 1V, 11/04/2019, 17:53. FINDINGS: Surgical changes and devices: None. Lungs and pleura: Single-view portable radiograph with low lung volumes. No consolidation or pleural effusion. Mediastinum: Mediastinal contours appear normal. Heart size is normal. Bones and chest wall: No suspicious bony lesions. Overlying soft tissues appear unremarkable. IMPRESSION: Portable single view limited radiograph. No acute abnormality is seen. Dictated by: Axel Painting M.D. on 02/06/2023 at 21:31 Approved by: Axel Painting M.D. on 02/06/2023 at 21:32
[2023-02-06 20:52] LABS: Add Manual Diff / Slide Review NO; Basophils Absolute Auto 100 /uL (0-100); Basophils Percent Auto 0.8 % (0-2); Eosinophils Absolute Auto 100 /uL (0-450); Eosinophils Percent Auto 1.1 % (2-4); Hematocrit 41.6 % (36-46); Lymphocytes Absolute Auto 2500 /uL (1100-4500); Lymphocytes Percent Auto 21.2 % (25-40); Mean Corpuscular HGB Conc 33.6 % (30-36); Mean Corpuscular Hemoglobin 29.6 PG (26-34); Mean Corpuscular Volume 88.2 fL (80-100); Monocytes Absolute Auto 500 /uL (0-900); Monocytes Percent Auto 3.9 % (3-14); Neutrophils Absolute Auto 8800 /uL (1500-7000); Platelet Count 259 X10^3/uL (150-400); Red Blood Cell Count 4.72 X10^6/uL (4.0-5.2); Red Cell Distribution Width 13.8 % (11.6-14.8)
[2023-02-06 20:55] LABS: Alanine Aminotransferase 23 IU/L (<35); Albumin 4.4 g/dL (3.5-5.0); Albumin Globulin Ratio 1.2 (1.0-2.8); Alkaline Phosphatase 113 U/L (38-126); Aspartate Aminotransferase 25 IU/L (14-36); Bilirubin Total 0.5 mg/dL (0.2-1.3); Blood Urea Nitrogen 17 mg/dL (7-17); Calcium 9.8 mg/dL (8.4-10.2); Carbon Dioxide 26 mmol/L (22-32); Chloride 100 mmol/L (98-107); Creatine Kinase 33 U/L (30-135); Estimated Glomerular Filt Rate > 60 mL/min (>60); Globulin 3.7 g/dL (1.7-4.1); Glucose 135 mg/dL (70-100); HEMOLYSIS 21 (0-50); Lipase 27 U/L (23-300); Sodium 137 mmol/L (137-145); Total Protein 8.1 g/dL (6.3-8.2)
[2023-02-06 21:07] LABS: Troponin I < 0.012 ng/mL (0.01-0.034)
[2023-02-06] MEDS: METOCLOPRAMIDE 10 MG/2 ML INJ IV (21:11)
[2023-02-06] MEDS: SODIUM CHLORIDE 0.9% 1,000 ML 150 ML IV (21:12)
[2023-02-06] MEDS: PANTOPRAZOLE 40 MG VIAL IV (21:17)
[2023-02-06] MEDS: GLUCAGON,HUMAN RECOMBINANT 1 MG/ML VIAL IV (21:19)
--- NOTE | 2023-02-06 21:30 | PC.NURSE ---
pt unable to tolerate any drinking, attempted to drink after glucagon and vomited everything
--- NOTE | 2023-02-06 21:31 | ED.SKABFB ---
HPI - Skin/Abscess/Foreign Bdy General Chief complaint: Skin/Abscess/Foreign Body Stated complaint: Food in throat Time Seen by Provider: 02/06/23 20:41 Source: patient Mode of arrival: EMS History of Present Illness HPI narrative: Patient 52-year-old female history of hypertension, DM, coronary artery is presenting today food stuck in throat. She reports that she ate chicken and pork last night. It has not gone down for almost 24 hours now. She is vomiting fairly regularly. But seems to be managing secretions. Unclear if secretions are staying down. She also endorses chest pain. It is nonradiating feels tight. Denies any abdominal pain nausea vomiting or any other symptoms. Related Data Home Medications Medication Instructions Recorded Confirmed gabapentin 600 mg tablet 1,200 mg PO TID 11/28/17 02/06/23 humalog u 200 120 unit IM .before meals 11/28/17 02/06/23 hydrocodone 5 mg-acetaminophen 325 1 tab PO Q6H PRN Headache 11/28/17 02/06/23 mg tablet ondansetron HCl 4 mg tablet 4 mg PO DAILY PRN Nausea 11/28/17 02/06/23 (Zofran) butalbital 50 mg-acetaminophen 325 1 cap PO Q6HR PRN Headache 02/06/23 02/06/23 mg-caffeine 40 mg-codeine 30 mg cap insulin glargine U-300 conc 300 unit SUBCUT 02/06/23 unit/mL (3 mL) subcutaneous pen (Toujeo Max U-300 SoloStar) losartan 25 mg tablet 25 mg PO QAM 02/06/23 02/06/23 octreotide,microspheres 20 mg 20 mg IM Q4W 02/06/23 02/06/23 intramuscular susp, extended release propranolol 10 mg tablet 10 mg PO QAM PRN Anxiety 02/06/23 02/06/23 spironolactone 25 mg tablet 25 mg PO DAILY 02/06/23 02/06/23 Previous Rx's Medication Instructions Recorded diclofenac sodium 1 % topical gel 2 g topical QID PRN pain #100 grams 11/02/21 omeprazole 20 mg tablet,delayed 20 mg PO DAILY PRN GI bleeding 11/02/21 release prophylaxis #20 tabs Allergies Allergy/AdvReac Type Severity Reaction Status Date / Time Iodinated Contrast Media Allergy Severe Anaphylaxis Verified 02/06/23 21:56 shellfish derived Allergy Severe Anaphylaxis Verified 02/06/23 21:56 Sulfa (Sulfonamide Allergy Severe RASH, Verified 02/06/23 21:56 Antibiotics) FEELS LIKE MY THROAT IS CLOSING UP exenatide Allergy Intermediate SYCOPE, Verified 02/06/23 21:56 EMESIS hydromorphone Allergy Intermediate FEELING OF Verified 02/06/23 21:56 IMPENDING DOOM latex Allergy Intermediate RASH, Verified 02/06/23 21:56 YEAST INFECTIONS levofloxacin Allergy Intermediate RASH Verified 02/06/23 21:56 metformin Allergy Intermediate VOMITING Verified 02/06/23 21:56 DIARRHEA morphine Allergy Verified 02/06/23 21:56 Penicillins Allergy Verified 02/06/23 21:56 TAPE PAPER TAPE OK Allergy Unknown Uncoded 02/06/23 21:11 Review of Systems Review of Systems ROS Unobtainable: All systems reviewed & are unremarkable except as noted in HPI and below Patient History Medical History Anxiety Carcinoid syndrome Diabetes GERD (gastroesophageal reflux disease) HTN (hypertension) Migraines Sleep apnea Surgical History H/O bladder repair surgery H/O hernia repair H/O: hysterectomy History of tonsillectomy Family History Mother Hypertension Diabetes mellitus Stroke Father Hypertension Diabetes mellitus Grandmother Hypertension Heart disease Gallstones Diabetes mellitus Grandfather Hypertension Heart disease Diabetes mellitus Family/Other Heart disease Social History marital status: unmarried,living together household members: significant other occupational status: unemployed Smoking Status: Never smoker alcohol intake: never substance use type: does not use Smoking Status: Never smoker alcohol intake frequency: holidays/special occasions only Substance Use Type: does not use Exam Initial Vital Signs Initial Vital Signs: Vital Signs Temperature 97.9 F 02/06/23 20:20 Pulse Rate 92 H 02/06/23 20:20 Respiratory Rate 18 02/06/23 20:20 Blood Pressure 197/95 H 02/06/23 20:20 Pulse Oximetry 97 02/06/23 20:20 Oxygen Delivery Method Room Air 02/06/23 20:20 GENERAL: Alert 52-year-old female appears uncomfortable and anxious HEENT: Head atraumatic,EOMI, pupils reactive, face symmetric CARDIOVASCULAR: Regular rate and rhythm without murmurs, rubs or gallops. RESPIRATORY: Breath sounds equal bilaterally, no wheezes rales or rhonchi. ABDOMEN: Soft, nontender. Normoactive bowel sounds all 4 quadrants. No guarding or rebound. EXTREMITIES: Normal range of motion, no clubbing or edema. Neurovascularly intact NEUROLOGICAL: Alert and oriented x4 SKIN: Warm, dry, no laceration, no petechiae, no rashes or lesions. Course Orders Ordered: ED Orders 02/06/23 20:28 EKG-12 Lead Stat 02/06/23 20:32 Complete Blood Count AUTO DIFF Stat Comprehensive Metabolic Panel Stat Lipase Stat Troponin & CK Cardiac Panel Stat 02/06/23 20:41 XR chest 1V Stat 02/06/23 21:59 Consult to General Surgery Stat 02/06/23 22:11 COVID19 -Nasal RAPID Stat Acetaminophen (Acetaminophen 650 Mg Supp) 650 mg WA Q6HR PRN PRN Reason: Fever/Mild Pain (1-3) Diclofenac Sodium (Diclofenac 1% Gel 100 Gm) 1 applic TOP QID PRN PRN Reason: pain Sodium Chloride (Normal Saline 0.9%) 1,000 mls @ 150 mls/hr IV CONT AMERICA Last Infusion: 02/06/23 22:40 Dose: 0 mls/hr Documented By: Admin: 02/06/23 21:12 Dose: 150 mls/hr Documented By: FIONA Dextrose (D10w) 100 mls @ 1,200 mls/hr IV PRN PRN PRN Reason: Hypoglycemia Potassium Chloride/Dextrose/Sod Cl (Dextrose 5%-0.45%Ns W/Kcl 20meq) 1,000 mls @ 84 mls/hr IV CONT AMERICA Last Admin: 02/07/23 00:22 Dose: 84 mls/hr Documented By: Insulin Human Lispro (Insulin Lispro 100 Unit/Ml 3ml Vial) 0 unit SUBCUT Q6H [facility]; Protocol Last Admin: 02/06/23 23:33 Dose: Not Given Documented By: Ketorolac Tromethamine (Ketorolac 30 Mg/Ml Vial) 15 mg IV Q6H PRN PRN Reason: pain 4-6, or higher Stop: 02/12/23 00:16 Lidocaine (Lidocaine Patch 1 Each Adh..Patch) 1 each TOP DAILY AMERICA Lorazepam (Lorazepam 2 Mg/Ml Inj) 0.5 mg IV Q2HR PRN PRN Reason: Anxiety Metoprolol Tartrate (Metoprolol Tartrate 5 Mg/5 Ml Inj) 5 mg IV Q2HR PRN PRN Reason: for SBP>150, hold if HR<60 Naloxone HCl (Naloxone 0.4 Mg/Ml Vial) 0.2 mg IV Q2MIN PRN PRN Reason: Opiate Reversal Ondansetron HCl (Ondansetron 4 Mg/2 Ml Inj) 4 mg IV Q2HR PRN PRN Reason: Nausea And Vomiting Last Admin: 02/06/23 23:41 Dose: 4 mg Documented By: Pantoprazole Sodium (Pantoprazole 40 Mg Vial) 40 mg IV DAILY AMERICA Discontinued Medications Glucagon (Glucagon,Human Recombinant 1 Mg/Ml Vial) 1 mg IV NOW ONE Stop: 02/06/23 20:42 Last Admin: 02/06/23 21:19 Dose: 1 mg Documented By: FIONA Ketorolac Tromethamine (Ketorolac 30 Mg/Ml Vial) 15 mg IV Q6H PRN PRN Reason: pain Stop: 02/12/23 00:16 Last Admin: 02/07/23 00:33 Dose: 15 mg Documented By: Lorazepam (Lorazepam 2 Mg/Ml Inj) 0.5 mg IV NOW ONE Stop: 02/06/23 21:51 Last Admin: 02/06/23 22:02 Dose: 0.5 mg Documented By: FIONA Lorazepam (Lorazepam 2 Mg/Ml Inj) 0.5 mg IV Q4HR PRN PRN Reason: Anxiety Last Admin: 02/06/23 23:41 Dose: 0.5 mg Documented By: Metoclopramide HCl (Metoclopramide 10 Mg/2 Ml Inj) 10 mg IV NOW ONE Stop: 02/06/23 20:42 Last Admin: 02/06/23 21:11 Dose: 10 mg Documented By: FIONA Metoprolol Tartrate (Metoprolol Tartrate 5 Mg/5 Ml Inj) 5 mg IV Q2HR PRN PRN Reason: Hypertension Pantoprazole Sodium (Pantoprazole 40 Mg Vial) 40 mg IV NOW ONE Stop: 02/06/23 20:42 Last Admin: 02/06/23 21:17 Dose: 40 mg Documented By: FIONA Vital Signs Vital signs: Vital Signs - 8 hr 02/06/23 21:30 02/06/23 21:45 02/06/23 21:45 Pulse Rate 92 H 96 H Respiratory Rate 15 18 Blood Pressure 184/83 H Pulse Oximetry 97 98 MDM - Skin/Abscess/Foreign Bdy Lab Data 02/06/23 20:32 02/06/23 20:32 Labs: Lab Results 02/06/23 02/06/23 Range/Units 20:32 20:32 WBC 12.0 H (4.5-11.0) X10^3/uL RBC 4.72 (4.0-5.2) X10^6/uL Hgb 14.0 (12.0-16.0) g/dL Hct 41.6 (36-46) % MCV 88.2 (80-100) fL MCH 29.6 (26-34) PG MCHC 33.6 (30-36) % RDW 13.8 (11.6-14.8) % Plt Count 259 (150-400) X10^3/uL Neut % (Auto) 73.0 (50-75) % Lymph % (Auto) 21.2 L (25-40) % Brooks % (Auto) 3.9 (3-14) % Eos % (Auto) 1.1 L (2-4) % Baso % (Auto) 0.8 (0-2) % Neut # (Auto) 8800 H (0720-4175) /uL Lymph # (Auto) 2500 (9950-1020) /uL Brooks # (Auto) 500 (0-900) /uL Eos # (Auto) 100 (0-450) /uL Baso # (Auto) 100 (0-100) /uL Sodium 137 (137-145) mmol/L Potassium 4.0 (3.4-5.1) mmol/L Chloride 100 (98-107) mmol/L Carbon Dioxide 26 (22-32) mmol/L BUN 17 (7-17) mg/dL Creatinine 0.46 L (0.52-1.04) mg/dL Estimated GFR > 60 (>60) mL/min BUN/Creatinine Ratio 37.0 H (6-22) Glucose 135 H (70-100) mg/dL Calcium 9.8 (8.4-10.2) mg/dL Total Bilirubin 0.5 (0.2-1.3) mg/dL AST 25 (14-36) IU/L ALT 23 (<35) IU/L Alkaline Phosphatase 113 (38-126) U/L Total Creatine Kinase 33 (30-135) U/L Troponin I < 0.012 (0.01-0.034) ng/mL Total Protein 8.1 (6.3-8.2) g/dL Albumin 4.4 (3.5-5.0) g/dL Globulin 3.7 (1.7-4.1) g/dL Albumin/Globulin Ratio 1.2 (1.0-2.8) Lipase 27 (23-300) U/L Imaging Data Chest x-ray: Radiologist's Impression: PROCEDURE:? XR CHEST 1V ? INDICATIONS:? Sternal chest pain. ? TECHNIQUE:? One view of the chest was acquired.? ? COMPARISON:? [facility], , XR CHEST 1V, 11/04/2019, 17:53. ? FINDINGS:? ? Surgical changes and devices:? None.? ? Lungs and pleura:? Single-view portable radiograph with low lung volumes.? No consolidation or pleural effusion. ? Mediastinum:? Mediastinal contours appear normal.? Heart size is normal.? ? Bones and chest wall:? No suspicious bony lesions.? Overlying soft tissues appear unremarkable.? ? ? IMPRESSION:? Portable single view limited radiograph.? No acute abnormality is seen. ? ? Dictated by: Axel Painting M.D. on 02/06/2023 at 21:31? ECG Data Interpretation: Normal sinus rhythm rate 93 WA interval 138 QRS [address] changes no T-wave inversions, similar MDM Narrative Medical decision making narrative: Patient 52-year-old female history of diabetes coronary artery disease presenting today with chest pain and food stuck in esophagus. Food has been there for at least 24 hours. She really is unable to manage any liquids she reports that nothing has gone down. She has vomited here in the ED. We tried Protonix glucagon and omari miah. She was unable to jump up and down. She was also given a dose of Ativan food bolus remains. MDM CC: Food bolus Complicating co-morbidities: DM coronary artery disease Corroborating data: Data collected from: [ ] Medical records reviewed: [ ] Differential considered: Food bolus, coronary artery disease esophageal stricture Exam documented above, pertinent findings include: Vomiting after every attempt to swallow Lab Test results independently reviewed as above. Pertinent findings: Negative troponin Independently reviewed EKG as above Imaging studies independently reviewed: Chest x-ray which is negative Consultations: Dr. Sue, on-call for surgery updated on patient's symptoms test results with multiple comorbidities persistent hypertension patient is recommended to be admitted to the hospitalist with surgery to consult Tele hospitalist, Dr. Stanford updated on patient's symptoms and test results and accepts patient Treatments: Protonix glucagon Reglan Ativan Re-evaluations: Persistent vomiting Discussion: As above Diagnosis: Esophageal food bolus Disposition: see below, along with detailed discharge instructions that have been reviewed with patient as well as indications for ED re-evaluation and additional outpatient follow up Discharge Plan Departure Patient Disposition: Admitted as Observation Clinical Impression: Esophageal foreign body Admit Date/Time: 02/06/23 21:59 Admit Provider: Pacheco Stanford
[2023-02-06] MEDS: LORazepam 2 MG/ML INJ 0.5 MG IV ×2 (22:02→23:41)
[2023-02-06 22:29] LABS: COVID19 -Nasal RAPID Negative (Negative)
[2023-02-06] MEDS: ONDANSETRON 4 MG/2 ML INJ IV (23:41)
--- NOTE | 2023-02-06 23:41 | PM.HP.1 ---
History of Present Illness History of Present Illness Date Patient Seen: 02/06/23 Chief complaint: Food in throat Narrative: Presenting with inability to swallow, not even saliva, 24 hours after she likely had bolus of food stuck in esophagus. Very emotional, anxious and not very good historian on presentation. No PMH of dysphagia or stricture. [facility] Medical History (Updated 02/06/23 @ 23:58 by Pacheco Stanford MD) Anxiety Carcinoid syndrome Diabetes GERD (gastroesophageal reflux disease) HTN (hypertension) Migraines Sleep apnea Surgical History H/O bladder repair surgery H/O hernia repair H/O: hysterectomy History of tonsillectomy Family History Mother Hypertension Diabetes mellitus Stroke Father Hypertension Diabetes mellitus Grandmother Hypertension Heart disease Gallstones Diabetes mellitus Grandfather Hypertension Heart disease Diabetes mellitus Family/Other Heart disease Social History marital status: unmarried,living together household members: significant other occupational status: unemployed Smoking Status: Never smoker alcohol intake: never substance use type: does not use Meds Home Medications and Allergies Home Medications Medication Instructions Recorded Confirmed Type gabapentin 600 mg tablet 1,200 mg PO TID 11/28/17 02/06/23 History humalog u 200 120 unit IM .before meals 11/28/17 02/06/23 History hydrocodone 5 mg-acetaminophen 325 1 tab PO Q6H PRN Headache 11/28/17 02/06/23 History mg tablet ondansetron HCl 4 mg tablet 4 mg PO DAILY PRN Nausea 11/28/17 02/06/23 History (Zofran) diclofenac sodium 1 % topical gel 2 g topical QID PRN pain #100 grams 11/02/21 02/06/23 Rx omeprazole 20 mg tablet,delayed 20 mg PO DAILY PRN GI bleeding 11/02/21 02/06/23 Rx release prophylaxis #20 tabs butalbital 50 mg-acetaminophen 325 1 cap PO Q6HR PRN Headache 02/06/23 02/06/23 History mg-caffeine 40 mg-codeine 30 mg cap insulin glargine U-300 conc 300 unit SUBCUT 02/06/23 History unit/mL (3 mL) subcutaneous pen (Josepho Max U-300 SoloStar) losartan 25 mg tablet 25 mg PO QAM 02/06/23 02/06/23 History octreotide,microspheres 20 mg 20 mg IM Q4W 02/06/23 02/06/23 History intramuscular susp, extended release propranolol 10 mg tablet 10 mg PO QAM PRN Anxiety 02/06/23 02/06/23 History spironolactone 25 mg tablet 25 mg PO DAILY 02/06/23 02/06/23 History Allergies Allergy/AdvReac Type Severity Reaction Status Date / Time Iodinated Contrast Media Allergy Severe Anaphylaxis Verified 02/06/23 21:56 shellfish derived Allergy Severe Anaphylaxis Verified 02/06/23 21:56 Sulfa (Sulfonamide Allergy Severe RASH, Verified 02/06/23 21:56 Antibiotics) FEELS LIKE MY THROAT IS CLOSING UP exenatide Allergy Intermediate SYCOPE, Verified 02/06/23 21:56 EMESIS hydromorphone Allergy Intermediate FEELING OF Verified 02/06/23 21:56 IMPENDING DOOM latex Allergy Intermediate RASH, Verified 02/06/23 21:56 YEAST INFECTIONS levofloxacin Allergy Intermediate RASH Verified 02/06/23 21:56 metformin Allergy Intermediate VOMITING Verified 02/06/23 21:56 DIARRHEA morphine Allergy Verified 02/06/23 21:56 Penicillins Allergy Verified 02/06/23 21:56 TAPE PAPER TAPE OK Allergy Unknown Uncoded 02/06/23 21:11 Review of Systems Cardiovascular Comments: w/o palpitations or chest pain Respiratory Comments: w/o shortness of breath Gastrointestinal Comments: food is stuck in the chest Psychiatric Comments: anxious Exam Vital Signs (past 8 hours): - 02/06/23 20:20 02/06/23 20:39 02/06/23 21:03 Temperature 97.9 F Pulse Rate 92 H 91 H 96 H Respiratory Rate 18 Blood Pressure 197/95 H Pulse Oximetry 97 98 91 Oxygen Delivery Method Room Air 02/06/23 21:04 02/06/23 21:04 02/06/23 21:30 Temperature Pulse Rate 92 H 92 H Respiratory Rate 15 Blood Pressure 172/85 H Pulse Oximetry 95 97 Oxygen Delivery Method 02/06/23 21:45 02/06/23 21:45 02/06/23 22:00 Temperature Pulse Rate 96 H 94 H Respiratory Rate 18 Blood Pressure 184/83 H Pulse Oximetry 98 Oxygen Delivery Method 02/06/23 22:05 02/06/23 22:05 02/06/23 22:30 Temperature Pulse Rate 91 H 91 H Respiratory Rate Blood Pressure 184/81 H Pulse Oximetry 94 97 Oxygen Delivery Method Room Air Oxygen Delivery Method Room Air Const Other: appears in distress, anxious Eyes Other: eomi Resp Other: CTA Cardio Other: RRR GI Other: obese, not distended abdomen Skin Other: w/o rashes Neuro Other: w/o focal deficits Psych Other: anxious Objective Labs 02/06/23 20:32 02/06/23 20:32 Labs: Laboratory Results - last 24 hr 02/06/23 02/06/23 02/06/23 20:32 20:32 22:11 WBC 12.0 H RBC 4.72 Hgb 14.0 Hct 41.6 MCV 88.2 MCH 29.6 MCHC 33.6 RDW 13.8 Plt Count 259 Neut % (Auto) 73.0 Lymph % (Auto) 21.2 L Victoria % (Auto) 3.9 Eos % (Auto) 1.1 L Baso % (Auto) 0.8 Neut # (Auto) 8800 H Lymph # (Auto) 2500 Victoria # (Auto) 500 Eos # (Auto) 100 Baso # (Auto) 100 Sodium 137 Potassium 4.0 Chloride 100 Carbon Dioxide 26 BUN 17 Creatinine 0.46 L Estimated GFR > 60 BUN/Creatinine Ratio 37.0 H Glucose 135 H Calcium 9.8 Total Bilirubin 0.5 AST 25 ALT 23 Alkaline Phosphatase 113 Total Creatine Kinase 33 Troponin I < 0.012 Total Protein 8.1 Albumin 4.4 Globulin 3.7 Albumin/Globulin Ratio 1.2 Lipase 27 SARS-CoV-2 (PCR) Negative Assessment & Plan Assessment and plan (1) Esophageal foreign body: Status: Acute Plan: EGD by surgery in AM. NPO until then. Antiemetics. (2) Anxiety: Status: Acute Plan: prn Ativan (3) Diabetes: Status: Acute Plan: Sliding Scale, D5 in IVFs, NPO (4) Migraines: Status: Acute Plan: prn tylenol supp or toradol iv (5) Carcinoid syndrome: Status: Acute Plan: Had bowel resection, episodic loose stool (6) GERD (gastroesophageal reflux disease): Status: Acute Plan: PPI (7) HTN (hypertension): Status: Acute Plan: On Losartan at home Lopressor IV PRN while npo
[2023-02-07] VITALS (8 sets, daily range): BP systolic 108–145; BP diastolic 60–88; PULSE 73–90; RESP 12–18; TEMP 35.6–37.2; O2SAT 93–97; BMI 46.0
[2023-02-07] MEDS: DEXTROSE 5%-0.45NS W/KCL 20MEQ 1,000 ML 84 MEQ IV (00:22)
[2023-02-07] MEDS: KETOROLAC 30 MG/ML VIAL 15 MG IV ×2 (00:33→06:41)
--- NOTE | 2023-02-07 02:28 | PC.NURSE ---
Patient was admitted to room 210 at 2245. Patient is A & O x 4, very anxious, states she has food caught in her esophagus and cannot swallow it or cough it up. Patient c/o pain to mid chest area secondary to food caught and c/o intermittent nausea. Patient denies any SOB. Patient refuses full skin assessment, refuses to allow RN to check her blood glucose with our monitor, states you're not poking my finger, patient has a continuos BG monitor which read 117. Patient also refuses SCDs and non-skid socks. Zofran given for intermittent nausea, no emesis. Ativan given for anxiety and Toradol given for pain, patient fell asleep afterwards. Patient instructed to call if any SOB or feelings of chocking or any other problems, patient verbalized understanding. Tele and continuous POX on, Spouse at bedside.
--- NOTE | 2023-02-07 08:30 | CM.DANOTE ---
Reviewed EMR for medical status and anticipated d/c needs. Met with pt/spouse bedside, pt found to be slightly awake, spoke briefly w/spouse. Introduced self and explained role. Payor: Medicare, Medicaid PCP: Samantha Peralta Pt admitted for inability to swallow after 24-hours of having food lodged in her esophagus. Pt tried several attempts to dislodge the food, without success, at this time she cannot even swallow her own saliva, presented as tearful and highly anxious in the ED. She resides w/spouse in their RV trailor, lives independently, is disabled and unemployed. Plan is for EDG today to try to dislodge the food. DCP will continue to monitor and assist w/support and resources as needed for d/c home. Spouse will transport. Discharge Planning/Care Management CM Discharge Assessment Start: 02/07/23 08:21 Freq: Status: Active Protocol: Document 02/07/23 08:21 DPL (Rec: 02/07/23 08:29 DPL [id number]) Discharge Planning Assessment Assigned Rail Signal Designer FAUSTINO Rosado Advance Directives? No History Provided By Significant Other,Medical Record Has Patient been admitted in last 30 No days? Prior Living Arrangements RV Household Members significant other Type of transporation used prior to Drives own vehicle admit Independent with ADL's Yes Is patient alert and oriented? 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 Caregiver for Another No Comment N/A Comment Home w/family cg. Barriers to Discharge No Discharge Plan Home Transportation Arrangement Spouse Referrals Initiated None needed Whiteboard Updated in Patient Room with Yes name and ext. # of Rail Signal Designer Review Status In Process Please Provide Date Initial DC 02/07/23 Assessment Was Performed
[2023-02-07] MEDS: PANTOPRAZOLE 40 MG VIAL IV (09:59)
--- NOTE | 2023-02-07 11:05 | P.CONS_ITS ---
History of Present Illness Consult details Date Patient Seen: 02/07/23 Time Patient Seen: 11:05 Chief complaint: Food in throat Narrative: Kenyatta is a 52 year old woman who presented to the ER last night because of inability to swallow. She reports that it started Tuesday while she was eating some chicken and ribs. It has not improved since then. She has been having problems with swallowing recently. She would an EGD earlier this year at [facility] and she is not aware that any abnormalities were found in her esophagus. 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 Meds Home Medications and Allergies Home Medications Medication Instructions Recorded Confirmed Type gabapentin 600 mg tablet 1,200 mg PO TID 11/28/17 02/06/23 History humalog u 200 120 unit IM .before meals 11/28/17 02/06/23 History hydrocodone 5 mg-acetaminophen 325 1 tab PO Q6H PRN Headache 11/28/17 02/06/23 History mg tablet ondansetron HCl 4 mg tablet 4 mg PO DAILY PRN Nausea 11/28/17 02/06/23 History (Zofran) diclofenac sodium 1 % topical gel 2 g topical QID PRN pain #100 grams 11/02/21 02/06/23 Rx omeprazole 20 mg tablet,delayed 20 mg PO DAILY PRN GI bleeding 11/02/21 02/06/23 Rx release prophylaxis #20 tabs butalbital 50 mg-acetaminophen 325 1 cap PO Q6HR PRN Headache 02/06/23 02/06/23 History mg-caffeine 40 mg-codeine 30 mg cap insulin glargine U-300 conc 300 unit SUBCUT 02/06/23 History unit/mL (3 mL) subcutaneous pen (Toujeo Max U-300 SoloStar) losartan 25 mg tablet 25 mg PO QAM 02/06/23 02/06/23 History octreotide,microspheres 20 mg 20 mg IM Q4W 02/06/23 02/06/23 History intramuscular susp, extended release propranolol 10 mg tablet 10 mg PO QAM PRN Anxiety 02/06/23 02/06/23 History spironolactone 25 mg tablet 25 mg PO DAILY 02/06/23 02/06/23 History Allergies Allergy/AdvReac Type Severity Reaction Status Date / Time Iodinated Contrast Media Allergy Severe Anaphylaxis Verified 02/06/23 21:56 shellfish derived Allergy Severe Anaphylaxis Verified 02/06/23 21:56 Sulfa (Sulfonamide Allergy Severe RASH, Verified 02/06/23 21:56 Antibiotics) FEELS LIKE MY THROAT IS CLOSING UP exenatide Allergy Intermediate SYCOPE, Verified 02/06/23 21:56 EMESIS hydromorphone Allergy Intermediate FEELING OF Verified 02/06/23 21:56 IMPENDING DOOM latex Allergy Intermediate RASH, Verified 02/06/23 21:56 YEAST INFECTIONS levofloxacin Allergy Intermediate RASH Verified 02/06/23 21:56 metformin Allergy Intermediate VOMITING Verified 02/06/23 21:56 DIARRHEA morphine Allergy Intermediate Rash, Verified 02/07/23 06:44 itching Penicillins Allergy Intermediate Rash, Verified 02/07/23 06:44 itching TAPE PAPER TAPE OK Allergy Unknown Uncoded 02/06/23 21:11 Exam Vital Signs (past 8 hours): - 02/07/23 04:02 02/07/23 08:00 Temperature 98.6 F 96.1 F L Pulse Rate 90 87 Respiratory Rate 14 16 Blood Pressure 141/88 H 145/84 H Pulse Oximetry 95 97 Oxygen Flow Rate 0 0 Oxygen Delivery Method Room Air Oxygen Flow Rate 0 Const General: cushingoid Nutritional Appearance: obese Resp Effort & Inspection: normal respiratory effort Objective Labs 02/06/23 20:32 02/06/23 20:32 Labs: Laboratory Results - last 24 hr 02/06/23 02/06/23 02/06/23 20:32 20:32 22:11 WBC 12.0 H RBC 4.72 Hgb 14.0 Hct 41.6 MCV 88.2 MCH 29.6 MCHC 33.6 RDW 13.8 Plt Count 259 Neut % (Auto) 73.0 Lymph % (Auto) 21.2 L Marshall % (Auto) 3.9 Eos % (Auto) 1.1 L Baso % (Auto) 0.8 Neut # (Auto) 8800 H Lymph # (Auto) 2500 Marshall # (Auto) 500 Eos # (Auto) 100 Baso # (Auto) 100 Sodium 137 Potassium 4.0 Chloride 100 Carbon Dioxide 26 BUN 17 Creatinine 0.46 L Estimated GFR > 60 BUN/Creatinine Ratio 37.0 H Glucose 135 H Calcium 9.8 Total Bilirubin 0.5 AST 25 ALT 23 Alkaline Phosphatase 113 Total Creatine Kinase 33 Troponin I < 0.012 Total Protein 8.1 Albumin 4.4 Globulin 3.7 Albumin/Globulin Ratio 1.2 Lipase 27 SARS-CoV-2 (PCR) Negative PFSH Medical History Anxiety Carcinoid syndrome Diabetes GERD (gastroesophageal reflux disease) HTN (hypertension) Migraines Sleep apnea Surgical History H/O bladder repair surgery H/O hernia repair H/O: hysterectomy History of tonsillectomy Family History Mother Hypertension Diabetes mellitus Stroke Father Hypertension Diabetes mellitus Grandmother Hypertension Heart disease Gallstones Diabetes mellitus Grandfather Hypertension Heart disease Diabetes mellitus Family/Other Heart disease Social History marital status: unmarried,living together household members: significant other occupational status: unemployed Tobacco & Substance Use Smoking Status: Never smoker alcohol intake: never substance use type: does not use Assessment & Plan Assessment and plan (1) Esophageal foreign body: Status: Acute Plan Most likely a an esophageal food impaction. We will proceed with an esophagogastroduodenoscopy.
[2023-02-07] MEDS: LACTATED RINGERS 1,000 ML 42 ML IV (11:15)
--- NOTE | 2023-02-07 11:31 | PM.OP.COLON ---
Operative Date/Time/Diagnoses Date of procedure: 02/07/23 Time of procedure: 11:32 Pre-op diagnosis: Personal history of colon cancer Post-op diagnosis: same Procedure & Clinicians Study performed: Colonoscopy Same procedure as scheduled: Yes Surgeon: Franklin Rodriguez Procedure Notes Procedure in detail: Surgeon: Franklin Rodriguez MD Anesthesia: Yareli Abad DO Procedure: The patient was brought to the endoscopy suite, placed in left lateral decubitus position. The patient was connected to monitoring devices. A time-out was performed. Sedation was administered. Once the patient was adequately sedated, a digital rectal exam was performed and was normal. The scope was then inserted and advanced to the cecum where the appendiceal orifice was identified and photographed. The scope was then slowly withdrawn over greater than 6 minutes. The mucosa was thoroughly inspected. [] The scope was retroflexed in the rectum. [] The scope was straightened and removed. The patient was awakened and brought to recovery. Scope withdrawal time: [] Sedation time: [] EBL: [] Findings: []
--- NOTE | 2023-02-07 11:54 | PM.OP.EGD ---
Operative Date/Time/Diagnoses Date of procedure: 02/07/23 Time of procedure: 11:54 Pre-op diagnosis: Dysphagia, suspected esophageal food impaction Post-op diagnosis: same Procedure & Clinicians Study performed: Esophagogastroduodenoscopy Same procedure as scheduled: Yes Surgeon: Franklin Rodriguez Procedure Notes Procedure in detail: Surgeon: Franklin Rodriguez MD Anesthesia: Marnie Cueva DO A timeout was performed. A bite blocked was placed. The patient was positioned in the supine position. Sedation was administered. The endoscope was inserted through the bite block and passed through the esophagus and stomach and into the duodenum. The duodenal mucosa appeared normal. The scope was withdrawn into the duodenal bulb and no abnormalities were seen. The scope was withdrawn into the stomach. No abnormalities were seen. The scope was retroflexed and no hiatal hernia was seen. The scope was withdrawn into the esophagus and there was some inflammation and irritation of the distal esophagus with a small mucosal ulcer. This likely corresponds to the area where there was a recent food impaction. No mass was seen. The remainder of the esophagus was normal. The scope was withdrawn. The patient was awakened and brought to recovery. Sedation time: 3 minutes Findings: Some irritation and a small mucosal ulcer in the distal esophagus which likely corresponds to the site of a recent food impaction Post-procedure Disposition: PACU
--- NOTE | 2023-02-07 12:51 | PM.DS.1 ---
History of Present Illness History of Present Illness Date Patient Seen: 02/07/23 Time Patient Seen: 12:51 Chief complaint: Food in throat Narrative: Per admitting provider, Presenting with inability to swallow, not even saliva, 24 hours after she likely had bolus of food stuck in esophagus. Very emotional, anxious and not very good historian on presentation. No PMH of dysphagia or stricture. Discharge Providers Provider Date of admission: 02/06/23 21:59 Discharge Date: 02/07/23 Primary care physician: Samantha Peralta DO Consults: 02/06/23 21:59 Consult to General Surgery Stat Comment: Consulting Provider: Carlos Manuel Busch Reason for consultation: Food bolus Has provider been notified: Yes Discharge provider: Lobo Barone DO Summary Hospital Course Discharge Diagnosis: (1) Esophageal foreign body: ? (2) Anxiety: ? ? ? (3) Diabetes: (4) Migraines: (5) Carcinoid syndrome: ? (6) GERD (gastroesophageal reflux disease): ? ? (7) HTN (hypertension): Hospital Course: This is a 52 year old female admitted with presumed esophageal foreign body. She was admitted overnight and underwent endoscopy the following morning. There was no obstruction noted on endoscopy, yet there was noted to be some esophageal irritation consistent with obstruction that had resolved. She was tolerating a diet after, and was discharged home after endoscopy. No changes to her home medications were recommended. She takes a PPI chronically. Time Spent with Patient Time spent: Less than 30 minutes Exam Vital Signs (past 8 hours): - 02/07/23 08:00 02/07/23 11:15 02/07/23 11:58 Temperature 96.1 F L 97.9 F 98.3 F Pulse Rate 87 87 73 Respiratory Rate 16 18 15 Blood Pressure 145/84 H 137/86 134/66 Pulse Oximetry 97 97 95 Oxygen Delivery Method Room Air Room Air Oxygen Flow Rate 0 02/07/23 12:03 02/07/23 12:08 02/07/23 12:15 Temperature 98.9 F Pulse Rate 89 85 90 Respiratory Rate 12 12 15 Blood Pressure 124/65 125/62 108/60 Pulse Oximetry 96 93 94 Oxygen Delivery Method Room Air Room Air Room Air Oxygen Flow Rate Oxygen Delivery Method Room Air Oxygen Flow Rate 0 Narrative Exam Narrative: Gen: No acute distress, sitting in restroom. No respiratory distress. Objective Labs 02/06/23 20:32 02/06/23 20:32 Labs: Laboratory Results - last 24 hr 02/06/23 02/06/23 02/06/23 20:32 20:32 22:11 WBC 12.0 H RBC 4.72 Hgb 14.0 Hct 41.6 MCV 88.2 MCH 29.6 MCHC 33.6 RDW 13.8 Plt Count 259 Neut % (Auto) 73.0 Lymph % (Auto) 21.2 L [place] % (Auto) 3.9 Eos % (Auto) 1.1 L Baso % (Auto) 0.8 Neut # (Auto) 8800 H Lymph # (Auto) 2500 [place] # (Auto) 500 Eos # (Auto) 100 Baso # (Auto) 100 Sodium 137 Potassium 4.0 Chloride 100 Carbon Dioxide 26 BUN 17 Creatinine 0.46 L Estimated GFR > 60 BUN/Creatinine Ratio 37.0 H Glucose 135 H Calcium 9.8 Total Bilirubin 0.5 AST 25 ALT 23 Alkaline Phosphatase 113 Total Creatine Kinase 33 Troponin I < 0.012 Total Protein 8.1 Albumin 4.4 Globulin 3.7 Albumin/Globulin Ratio 1.2 Lipase 27 SARS-CoV-2 (PCR) Negative [facility] Medical History Anxiety Carcinoid syndrome Diabetes GERD (gastroesophageal reflux disease) HTN (hypertension) Migraines Sleep apnea Surgical History H/O bladder repair surgery H/O hernia repair H/O: hysterectomy History of tonsillectomy Family History Mother Hypertension Diabetes mellitus Stroke Father Hypertension Diabetes mellitus Grandmother Hypertension Heart disease Gallstones Diabetes mellitus Grandfather Hypertension Heart disease Diabetes mellitus Family/Other Heart disease Social History marital status: unmarried,living together household members: significant other occupational status: unemployed Smoking Status: Never smoker alcohol intake: never substance use type: does not use Discharge Plan Discharge Plan Patient Disposition: Home Provider Discharge Comment: You were admitted to the hospital with a food obstruction in your esophagus, this resolved most likely prior to the endoscopy as nothing was seen. No medication changes recommended after discharge. No follow up recommended from the general surgeon. Discharge orders & Medications Prescriptions: Continued gabapentin 600 mg tablet 1,200 mg PO TID hydrocodone-acetaminophen 5-325 mg tablet 1 tab PO Q6H PRN (Reason: Headache) ondansetron HCl [Zofran] 4 mg tablet 4 mg PO DAILY PRN (Reason: Nausea) humalog u 200 120 unit IM .before meals diclofenac sodium 1 % gel 2 g topical QID PRN (Reason: pain) Qty: 100 0RF Rx Instructions: apply to single elbow, wrist or hand, or up to 4g on lower extremities up to 4 times daily as needed for pain omeprazole 20 mg tablet,delayed release (DR/EC) 20 mg PO DAILY PRN (Reason: GI bleeding prophylaxis) Qty: 20 0RF spironolactone 25 mg tablet 25 mg PO DAILY propranolol 10 mg Tablet 10 mg PO QAM PRN (Reason: Anxiety) [id number] 19-110-22-30 mg Capsule 1 cap PO Q6HR PRN (Reason: Headache) losartan 25 mg Tablet 25 mg PO QAM Toujeo Max U-300 SoloStar 300 unit/mL (3 mL) insulin pen SUBCUT Patient Comments: INJECT 150 UNITS UNDER THE SKIN EVERY 12 HOURS. octreotide,microspheres 20 mg Suspension,Extended Rel Recon 20 mg IM Q4W Follow up/Referrals: Samantha Peralta DO [Primary Care Provider] - Diet/Activity/Treatments Diet: Diet as Tolerated and Regular Activity: As tolerated, no restrictions Visit Report/Discharge Packet Stand Alone Forms: Patient Portal/API, Stroke Signs & Symptoms Discharge Data Primary Care Provider: Samantha Peralta Attending Provider: Pacheco Stanford Admit Date/Time: 02/06/23 21:59 Discharges patient from system. Discharge Date/Time: 02/07/23 13:30
--- NOTE | 2023-02-07 12:52 | PC.NURSE ---
Addendum entered by Leila Ren R.N. 02/07/23 14:07: Patient escorted via w/ch with [facility] with all belongings to private vehicle for discharge home with spouse at approximately 1329 Addendum entered by Leila Ren R.N. 02/07/23 13:18: MD at bedside this afternoon evaluating patient. He clears her for discharge home with . Patient verbalizes understanding and is in agreement with discharge today. Original Note: Patient left floor at approximately 1020 to preop this a.m. via stretcher and returned at 1220. She is A&OX4, VSS, on RA. She refuses BG checks as she has a sensor which tells her blood sugar this a.m. at 10 A.M. was 107. She reports feeling nauseated and light headed with standing. IVF D51/2NS with 20 MEQ K+ at 84ml/hr saline locked and report given to Alhaji. She is cleared for clear liquid diet this afternoon upon return from EGD, and reports she is eager to discharge home. Continuous monitoring, bed alarm, items in reach.
== END 2023-02-07 13:30 | disposition home or self-care (01) ==
LOC: ED 21:59 → AC 22:00
PROVIDERS: Surgery; Admitting Provider Internal Medicine; Emergency Provider Emergency Medicine; Family Provider Family Medicine; PCP Family Medicine; Referring Provider Emergency Medicine; Visit Provider Internal Medicine
PROC: 0DJ08ZZ Inspection of Upper Intestinal Tract, Via Natural or Artificial Opening Endoscopic (ICD-10-PCS; CPT 43235; principal; 2023-02-07 11:45)
DX: K22.10 Ulcer of esophagus without bleeding (principal); F41.9 Anxiety disorder, unspecified; E11.9 Type 2 diabetes mellitus without complications; I10 Essential (primary) hypertension; T18.128A Food in esophagus causing other injury, initial encounter; Z11.52 Encounter for screening for COVID-19
CPT/HCPCS: 43235; 71045; 80053; 82550; 83690; 84484; 85025; 87635; 93005; 96361; 96374; 96375; 96376; 99221; 99284; C9803; G0378; C9113; J1610; J1885; J2060; J2250; J2405; J2765